=== PATIENT | female | born 1945 | race Caucasian/White ===

== ENCOUNTER → 2017-02-06 | Outpatient (CLI) | payer BC ==
[~2017-02-06] MED LIST: CALCIUM + D600 M1 PO; EFF50 PO; GADAVIST IV PRN; GLCPUNK; LIOT25TA8 PO; LORATADINE PO; MULTI VITAMIMINERALS PO; SYN100 PO; VITA400C28 PO; VITAMIN D PO; WLLUNK
--- NOTE | 2017-02-06 17:21 | DIAGNOSTIC IMAGING REPORT ---
BRAIN COMBO FOR IAC CLINICAL HISTORY: Follow up acoustic neuroma. COMPARISON STUDY: MRI of the brain December 04, 2013. TECHNIQUE: The patient was scanned according to protocol for cochlear implant. Utilizing a 1.5 Gabriella magnet, multiplanar, multi echo imaging of the brain was performed pre and postcontrast administration with thin cut imaging through the internal auditory canals. Injection of 8.5 cc of Gadavist IV was uneventful. FINDINGS: Significant artifact within the region of the right mastoids is noted from the known cochlear implant. This limits evaluation of the adjacent brain parenchyma. However, the ventricular system is stable. Basilar cisterns are patent. There are no extra axial collections. A small focus of right frontal lobe encephalomalacia is unchanged. Scattered foci of T2 hyperintensity within the white matter are unchanged since MRI of December 04, 2013. Note is made of a 5 x 4 x 3 mm enhancing lesion within the left internal auditory canal. This has slightly decreased in size since exam of December 04, 2013 when it measured 6 x 4 x 4 mm. No additional lesions are identified on this exam. Calvarial signal is maintained. Orbits are unremarkable. Sinuses are clear. IMPRESSION: 1. Slight decrease in size of the 5 x 4 x 3 mm left internal auditory canal acoustic neuroma since MRI of December 04, 2013. 2. Significant susceptibility artifact from the right-sided cochlear implant which compromises visualization of the adjacent brain parenchyma. However, no change within the brain parenchyma since prior MRI. Electronically signed by: Hero Hendrickson M.D. 02/06/2017 5:19 PM Dictated Date/Time: 02/06/2017 5:09 PM
== END | disposition home or self-care (01) ==
LOC: C.MRI 14:54
PROVIDERS: ATTEND Nurse Practitioner Family
DX: D33.3 Benign neoplasm of cranial nerves (principal)

== ENCOUNTER → 2017-03-25 | Outpatient (CLI) | payer BC, OTHER ==
[~2017-03-25] MED LIST changes: -GADAVIST IV PRN
== END | disposition home or self-care (01) ==
LOC: C.MAMM 11:25
PROVIDERS: ATTEND Nurse Practitioner Family
DX: M85.851 Other specified disorders of bone density and structure, right thigh (principal); M85.852 Other specified disorders of bone density and structure, left thigh

== ENCOUNTER → 2017-03-29 | Outpatient (CLI) | payer OTHER ==
--- NOTE | 2017-03-29 15:07 | MAMMOGRAPHY REPORT ---
BILATERAL DIGITAL SCREENING MAMMOGRAM TOMOSYNTHESIS WITH CAD: 03/29/2017 CLINICAL HISTORY: Routine screening. TECHNIQUE: Breast tomosynthesis in addition to standard 2D mammography was performed. Current study was also evaluated with a Computer Aided Detection (CAD) system. COMPARISON: Comparison is made to exams dated: 04/06/2013 mammogram, 03/31/2012 mammogram, 03/29/2011 m ammogram, 03/27/2010 mammogram, 03/23/2009 mammogram, and 10/26/2005 mammogram - [facility] [address]ter. BREAST COMPOSITION: The tissue of both breasts is almost entirely fatty. FINDINGS: No suspicious masses, calcifications, or areas of architectural distortion are noted in ei ther breast. There has been no significant interval change compared to prior exams. IMPRESSION: ACR BI-RADS CATEGORY 1: NEGATIVE There is no mammographic evidence of malignancy. A 1 year screening mammogram is recommended. The pa tient will receive written notification of the results. Approximately 10% of breast cancers are not detected with mammography. A negative mammographic report should not delay biopsy if a clinically suggestive mass is present. Earnestine Alcantar M.D. /:03/29/2017 12:31:59 Spine Supervisor: Guera THOMPSON(Marium)(M), [facility] letter sent: Normal 1/2 BI-RADS Code: ACR BI-RADS Category 1: Negative
== END | disposition home or self-care (01) ==
LOC: C.MAMM 10:57
PROVIDERS: ATTEND Obstetrics & Gynecology
DX: Z12.31 Encounter for screening mammogram for malignant neoplasm of breast (principal)

== ENCOUNTER → 2017-04-15 | Outpatient (CLI) | payer OTHER | END | disposition home or self-care (01) | LOC: C.PAPS 17:41 | PROVIDERS: ATTEND Obstetrics & Gynecology | DX: Z12.4 Encounter for screening for malignant neoplasm of cervix (principal) ==